=== PATIENT | male | born 1985 | race Caucasian/White ===

== ENCOUNTER 2023-11-16 14:33 | Outpatient (CLI) | payer OTHER ==
--- NOTE | 2023-11-16 16:07 | SLEEP CARE CONSULTATION ---
Information from patient questionnaire entered by Lela Lagos. I have reviewed and concur with the information entered by Lela Lagos. This document represents the service I personally performed and the decisions made by me, Shelly Alvarez MD, [facility]. History of Present Illness Service Date and Time: 11/16/2023 1433 Reason for Visit: New patient Chief Complaint: reports: Other (UPDATE SUPPLIES) Date of Onset: 14YRS Usual bedtime: 1030PM Time it takes to fall asleep: 6MINS Snores at night: Yes Observed to quit breathing while asleep: Yes Sleeps alone due to snoring: No Number of times waking at night: UNKNOWN Reasons for waking at night: reports: Gasping for air Toss, Turn, or Twitch while sleeping: Yes Recalls having dreams: Yes Usually gets out of bed at: 630AM Feels refreshed in the morning: No Morning headache: No Sleepy or fatigued during the day: No Ever fallen asleep while driving: No Takes day naps: Yes Dreams during day naps: Yes Prior sleep studies: Yes Additional HPI information: Mr. Antoine was diagnosed to have moderate obstructive sleep apnea-hypopnea syndrome and returned today for follow up of BiPAP therapy. He was last seen 13 years ago. The patient now uses a BiPAP that was prescribed by [facility] in [place]. He gets his supplies from [employer]. He wears a full face mask. He uses the device almost every night. The compliance data show usage in 84 out of the past 90 nights, averaging 7 hours a night. The > 4 hour compliance rate for the past 30 days is 88%. The residual AHI is 5.5 and average air leak is 34.7 L/minute. He reports significant improvement on the BiPAP which is set at 18/8 cmH2O with pressure of 5 cmH2O (autoBiPAP mode). [place] Sleepiness Scale score is 7. 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 Patient is Single and lives in [place]. Have you smoked in the past 12 months: No Alcohol use: Yes Alcohol amount and frequency: 2-3 WEEK Caffeine use: Yes Caffeine amount and frequency: 1-2 LITTERS DAILY Family History Family history of sleep disordered breathing: Yes Family Hx Sleep Apnea: Mother: Snoring, Sleep apnea - Treated, Father: Snoring Allergies and Home Medications Known drug allergies: No Drug allergies reviewed: Yes Home medication list reviewed: Yes Review of Systems Cardiovascular: reports: high blood pressure Respiratory: denies: shortness of breath, wheeze, sputum production, chronic cough, other Gastrointestinal: denies: heartburn, difficulty swallowing, nausea, vomitting, diarrhea, abdominal pain, other Urinary: denies: incontinence, frequency, urgency, impotence, other Neurological: denies: headaches, seizure, head trauma, disorientation, speech dysfunction, gait or balance problems, fainting or unconsciousness, other Psychiatric: reports: depression Ear/Nose/Throat: denies: nasal congestion, sinus problems, nose bleeds, dry mouth/throat, hoarseness, injury to nose, tonsillectomy, wisdom teeth removed, other Endocrine: denies: thyroid disease, history of goiter, sluggishness, too hot or cold, excessive thirst, increased appetite, increased urination, unexplained weakness, other Musculoskeletal: denies: joint pain, neck pain, back pain, joint swelling, muscle pain or cramping, mobility problems, other Immunologic: denies: sneezing, rash, itching, allergies to food or environment, other Physical Exam Vital signs obtained and entered by: LELA Forrest MA Blood Pressure: 128/72 (RIGHT ARM) Cuff size: regular Heart Rate: 77 O2 Saturation: 96 Height: 6 ft 4.75 in Weight: 201 lb 9.6 oz Body Mass Index: 24.0 BMI Classification: Normal Neck circumference: 15.5 Mood/affect: normal HEENT: other (unchanged) Impression and Plan IMPRESSION: 1. Obstructive Sleep Apnea-Hypopnea Syndrome, moderate, with the patient having good treatment compliance. The residual AHI is slightly high but may be due to profuse air leak. The patient attributes the leak to not having gotten a new mask for a long time because his prescription ran out after [facility] closed its sleep center. I will order him new supplies through [employer] PLAN: 1. Leave the BiPAP Auto set at 18/8 cm H2O and pressure support at 5 cmH2O. 2. Prescription made for new supplies. 3. Return for a follow up in 2 months to recheck air leak and residual AHI values. Prescriptions: Device supplies Follow up with Sleep Care in: 1-2 months Visit Type: In Office Time Spent with Patient (minutes): 15 Provider Statement: I spent 100% of the Face to Face Visit with the patient with greater than 50% spent counseling the patient and coordination of care.
[2023-11-16 16:21] VITALS: BP 128/72; O2SAT 96
== END 2023-11-16 14:34 | disposition home or self-care (01) ==
LOC: SC 14:33
PROVIDERS: ATTEND Internal Medicine Pulmonary Disease
DX: G47.33 Obstructive sleep apnea (adult) (pediatric) (principal)
CPT/HCPCS: 99202; 99212

== ENCOUNTER 2024-01-11 15:30 | Outpatient (CLI) | payer OTHER ==
--- NOTE | 2024-01-11 15:52 | SLEEP CARE CONSULTATION ---
Information from patient questionnaire entered by Lela Lagos. I have reviewed and concur with the information entered by Lela Lagos. This document represents the service I personally performed and the decisions made by me, Shelly Alvarez MD, [facility]. History of Present Illness Service Date and Time: 01/11/2024 1530 Reason for follow up: other (2 MONTH F/U) Equipment type: CPAP (RESMED) HPI additional information: Mr. Antoine was diagnosed to have moderate obstructive sleep apnea-hypopnea syndrome and returned today for follow up of BiPAP therapy. He was last seen 13 years ago. The patient now uses a BiPAP that was prescribed by [facility] in [place]. He gets his supplies from [employer]. He wears a full face mask. He uses the device almost every night. The compliance data show usage in 53 out of the past 60 nights, averaging 7.2 hours a night. The > 4 hour compliance rate for the past 60 days is 85%. The residual AHI is 6.7 and average air leak is 25.7 L/minute but improved significantly after he switched mask on November 15. He reports significant improvement on the BiPAP which is set at 18/8 cmH2O with pressure of 5 cmH2O (autoBiPAP mode). [place] Sleepiness Scale score is 5. The residual AHI, however, remains high at 6.7. CPAP Compliance Data - Data Reviewed with Patient Average duration of nightly device use: 7HRS 14MINS Compliance rate %: 85 (11/08/23-01/06/24) Current pressure setting (cmH2O): 18/8 Average residual AHI: 6.7 Subjective Initial [place] Sleepiness Scale score: 5 (01/23/24) Allergies and Home Medications Drug allergies reviewed: Yes Home medication list reviewed: Yes Review of Systems Review of systems same as previous: Yes (NO CHANGE) Physical Exam Vital signs obtained and entered by: LELA Forrest MA Blood Pressure: 111/65 (LEFT ARM) Cuff size: regular Heart Rate: 70 O2 Saturation: 97 Height: 6 ft 5 in Weight: 199 lb 12.8 oz Body Mass Index: 23.6 BMI Classification: Normal Impression and Plan IMPRESSION: 1. Obstructive Sleep Apnea-Hypopnea Syndrome, moderate, with the patient having good treatment compliance. The residual AHI is high with most being central apneas (central apnea index = 4.4). Therefore, I will order a BiPAP titration to find the optimal pressure. If he has complex sleep apnea, a BiPAP S/T may be necessary. PLAN: 1. Leave the BiPAP Auto set at 18/8 cm H2O and pressure support at 5 cmH2O. 2. Order a BiPAP titration study to start at 10/6 cmH2O. 3. Return for a follow up after the sleep study. Follow up with Sleep Care in: 3 months Visit Type: In Office Time Spent with Patient (minutes): 15 Provider Statement: I spent 100% of the Face to Face Visit with the patient with greater than 50% spent counseling the patient and coordination of care.
[2024-01-11 15:54] VITALS: BP 111/65; O2SAT 97
== END 2024-01-11 15:31 | disposition home or self-care (01) ==
LOC: SC 15:30
PROVIDERS: ATTEND Internal Medicine Pulmonary Disease
DX: G47.33 Obstructive sleep apnea (adult) (pediatric) (principal)
CPT/HCPCS: 99212

== ENCOUNTER 2024-02-07 20:02 | Outpatient (CLI) | payer OTHER | END 2024-02-07 20:03 | disposition home or self-care (01) | LOC: SC 20:02 | PROVIDERS: ATTEND Internal Medicine Pulmonary Disease | DX: G47.33 Obstructive sleep apnea (adult) (pediatric) (principal); G47.61 Periodic limb movement disorder | CPT/HCPCS: 95811 ==

== ENCOUNTER 2024-02-29 15:04 | Outpatient (CLI) | payer OTHER ==
--- NOTE | 2024-02-29 21:56 | SLEEP CARE CONSULTATION ---
Information from patient questionnaire entered by Lela Lagos. I have reviewed and concur with the information entered by Lela Lagos. This document represents the service I personally performed and the decisions made by me, Shelly Alvarez MD, [facility]. History of Present Illness Service Date and Time: 02/29/2024 1504 Initial [place] Sleepiness Scale score: 5 (01/23/24) Current [place] Sleepiness Scale score: 5 (02/29/24) Additional HPI information: Mr. Antoine was diagnosed with moderate obstructive sleep apnea-hypopnea syndrome and returned today for follow up of his recent manual CPAP/BiPAP titration study. During the study, BiPAP at 13/8 cmH2O was found to be optimal (residual AHI = 3.8 and no hypoxemia). A ResMed F20 full face mask was used. He also had mild periodic leg movement of sleep. EKG showed normal sinus rhythm. Sleep Study - Results Type of Sleep Study: Home sleep study (TITRATION F/U 02/07/24) Allergies and Home Medications Drug allergies reviewed: Yes Home medication list reviewed: Yes Allergy and home medication list: Allergies No Known Drug Allergies Allergy (Verified 02/25/24 13:02) Review of Systems Review of systems same as previous: Yes Physical Exam Vital signs obtained and entered by: LELA Forrest MA Blood Pressure: 139/83 (LEFT ARM) Cuff size: regular Heart Rate: 95 O2 Saturation: 97 Height: 6 ft 5 in Weight: 202 lb Body Mass Index: 23.9 BMI Classification: Normal Impression and Plan IMPRESSION: 1. Obstructive Sleep Apnea-Hypopnea Syndrome, moderate, with the patient continuing to have good treatment compliance. Based on the titration study, I will adjust his BiPAP to 13/8 cmH2O. PLAN: 1. BiPAP set to 13/8 cmH2O via the modem. 2. Return for a follow up in a year or earlier if there is any problem. Adjust device pressure to (cmH2O): 13/8 Follow up with Sleep Care in: 1 year Visit Type: In Office Time Spent with Patient (minutes): 15 Provider Statement: I spent 100% of the Face to Face Visit with the patient with greater than 50% spent counseling the patient and coordination of care.
[2024-02-29 21:59] VITALS: BP 139/83; O2SAT 97
== END 2024-02-29 15:05 | disposition home or self-care (01) ==
LOC: SC 15:04
PROVIDERS: ATTEND Internal Medicine Pulmonary Disease
DX: G47.33 Obstructive sleep apnea (adult) (pediatric) (principal)
CPT/HCPCS: 99212